=== PATIENT | female | born 1975 | race Caucasian/White ===

== ENCOUNTER 2024-03-08 12:15 | Outpatient (CLI) | payer OTHER, SELFPAY ==
--- NOTE | ~2024-03-08 | XR_ITS ---
XR lumbar spine 2-3V 03/08/2024 12:29 Indication: Low back pain for 4 months Procedure: 3 views lumbar spine Comparison: No prior studies for comparison. Findings: There is disc narrowing at L4-5 and L5-S1. There is facet hypertrophy at these levels. No e vidence for spondylolisthesis. No fracture or traumatic malalignment. Normal lumbar lordosis. Sacral foramen are symmetric. Impression: 1: Moderate lumbar spondylosis. Reviewed, dictated and finalized at location B. Impression: 1: Moderate lumbar spondylosis.
== END 2024-03-08 12:16 ==
PROVIDERS: PCP Nurse Practitioner Adult Health; Visit Provider Nurse Practitioner Adult Health
DX: M79.661 Pain in right lower leg (principal); M47.896 Other spondylosis, lumbar region
CPT/HCPCS: 72100